=== PATIENT | female | born 1995 | race African-American/Black ===

== ENCOUNTER 2018-10-22 08:28 | Emergency (ER) | payer MEDICAID ==
[~2018-10-22] VITALS: Ht 172.7 cm; Wt 63.6 kg
[2018-10-22] MEDS ORDERED: PENICILLIN G BENZATHINE LA 1,200,000 UNITS/2 ML SYRINGE IM ONE (09:15)
[2018-10-22] MEDS ORDERED: IBUPROFEN 600 MG TABLET PO ONE (09:15)
[2018-10-22] MEDS ORDERED: ACETAMINOPHEN 325 MG TABLET PO ONE (09:15)
[2018-10-22] MEDS ORDERED: DEXAMETHASONE SOD PHOS 4 MG/ML 5 ML VIAL IM ONE (09:15)
[2018-10-22 09:33] VITALS: BP 137/85
== END 2018-10-22 09:45 | disposition home or self-care (01) ==
LOC: EMS 08:29
DX: J02.9 Acute pharyngitis, unspecified (principal); R03.0 Elevated blood-pressure reading, without diagnosis of hypertension
CPT/HCPCS: 96372; 99283; J0561; J1100